=== PATIENT | male | born 1960 ===

== ENCOUNTER 2018-10-21 06:43 | Day surgery (SDC) | payer OTHER ==
[2018-10-21] MEDS ORDERED: ULTRACET PO (09:02)
[2018-10-21] MEDS ORDERED: ZANTAC300 MG PO (09:02)
[2018-10-21] MEDS ORDERED: KEFLEX500 MG PO (09:03)
== END 2018-10-21 13:00 | disposition home or self-care (01) ==
LOC: CIR.AMB 06:43
DX: K40.90 Unilateral inguinal hernia, without obstruction or gangrene, not specified as recurrent (principal)